=== PATIENT | female | born 1975 | race Caucasian/White ===

== ENCOUNTER 2018-03-10 20:25 | Emergency (ER) | payer OTHER ==
[~2018-03-10] VITALS: Wt 85.6 kg
[~2018-03-10 20:25] MED LIST: ALBU8.5H5 IH; AZIT250T13 PO; BENZ1LOZ52 MM; IBUP-1542 PO; MECL-77 PO
[2018-03-11] MEDS ORDERED: SOD CHLORIDE 0.9% 1,000 ML IV STA (00:01)
[2018-03-11] MEDS ORDERED: ONDANSETRON 4 MG INJ IV STA (00:01)
[2018-03-11] MEDS ORDERED: morphine 4 MG/ML VIAL IV STA (00:01)
[2018-03-11] MEDS ORDERED: CEFTRIAXONE 1 GM/50 ML (PMX) 50 ML IVPB ONE (01:00)
--- NOTE | 2018-03-11 01:17 | ERD ---
ER Documentation Chief Complaint Chief Complaint AP X'S 1 HR, BURNING UP ASOPHAGUS HPI This is a 42-year-old female who presents to the emergency room for evaluation of abdominal pain. The patient localizes abdominal pain to the midportion of the abdomen and describes it as a burning-like pain worse with spicy foods. The patient denies any radiation of pain in denies any nausea or vomiting associated with this. The patient came to the emergency room today for evaluation of her symptoms. ROS All systems reviewed and are negative except as per history of present illness. Medications Home Meds Active Scripts Meclizine Hcl* (Meclizine Hcl*) 25 Mg Tablet, 25 MG PO Q8H PRN for dizziness, #7 TAB Prov:TAMARA METCALF PA-C 11/16/14 Azithromycin* (Azithromycin*) 250 Mg Tablet, 250 MG PO DAILY, #6 TAB Take 2 tablets day 1, take one tablet each day 2-5 Prov:TAMARA METCALF PA-C 11/16/14 Benzocaine/Menthol* (Cepacol* Sore Throat Lozenges) 1 Each Lozenge, 1 EACH MM q2h PRN for SORE THROAT, #20 LOZENGE Prov:TAMARA METCALF PA-C 11/16/14 Albuterol Sulfate* (Albuterol Sulfate* HFA) 8.5 Gm Hfa.aer.ad, 2 PUFF IH Q4H PRN for WHEEZING AND SOB, #1 EA Prov:TAMARA METCALF PA-C 11/16/14 Ibuprofen* (Ibuprofen*) 600 Mg Tablet, 600 MG PO Q6, #30 TAB Prov:TAMARA METCALF PA-C 11/16/14 Reported Medications [None] No Conflict Check 12/28/11 Allergies Allergies: Coded Allergies: No Known Allergy (Unverified , 12/28/11) PMhx/Soc Medical and Surgical Hx: pt denies Surgical Hx History of Surgery: Yes (ovarian cyst removal) Anesthesia Reaction: No Hx Neurological Disorder: No Hx Respiratory Disorders: No Hx Cardiac Disorders: No Hx Psychiatric Problems: No Hx Miscellaneous Medical Probl: Yes (DM) Hx Alcohol Use: No Hx Substance Use: No Hx Tobacco Use: No Smoking Status: Never smoker Physical Exam Vitals Vital Signs Date Temp Pulse Resp B/P (MAP) Pulse Ox O2 O2 Flow FiO2 Time Delivery Rate 03/11/18 83 22 126/71 100 Room Air 00:20 (89) 03/10/18 98.2 87 18 134/76 100 20:28 (95) Physical Exam INITIAL VITAL SIGNS: Reviewed by me GENERAL: The patient is well developed and appropriate for usual state of health in no apparent distress HEENT: Pupils equal, round, and reactive to light. EOMI. There is no scleral icterus. NECK: C-spine is soft and supple, there is no meningismus. There is no cervical lymphadenopathy. LUNGS: Clear to auscultation bilaterally. There are no rales, wheezes or rhonchi. HEART: Regular rate and rhythm, no murmurs, clicks, rubs or gallops. ABDOMEN: Epigastric tenderness to palpation, negative Kelly sign, otherwise soft, non-tender, non-distended. There are bowel sounds in all four quadrants. No rebound or guarding. EXTREMITIES: There is no peripheral cyanosis or edema. No focal swelling or erythema. NEUROLOGICAL: The patient moves all four extremities with 5/5 strength. Cranial nerves II - XII are intact. Normal gait. Alert and oriented SKIN: There is no apparent rash or petechiae. HEME/LYMPHATIC: There is no evidence of excessive bruising or lymphedema. PSYCHIATRIC: The patient does not appear anxious or depressed. Result Diagram: 03/11/18 0003 03/11/18 0003 Results 24 hrs Laboratory Tests Test 03/11/18 00:03 03/11/18 00:09 White Blood Count 10.4 10^3/ul Red Blood Count 4.75 10^6/ul Hemoglobin 10.5 g/dl Hematocrit 34.6 % Mean Corpuscular Volume 72.8 fl Mean Corpuscular Hemoglobin 22.1 pg Mean Corpuscular Hemoglobin Concent 30.3 g/dl Red Cell Distribution Width 16.4 % Platelet Count 387 10^3/UL Mean Platelet Volume 10.0 fl Immature Granulocytes % 0.400 % Neutrophils % 77.6 % Lymphocytes % 15.5 % Monocytes % 4.8 % Eosinophils % 0.7 % Basophils % 1.0 % Nucleated Red Blood Cells % 0.0 /100WBC Immature Granulocytes # 0.040 10^3/ul Neutrophils # 8.1 10^3/ul Lymphocytes # 1.6 10^3/ul Monocytes # 0.5 10^3/ul Eosinophils # 0.1 10^3/ul Basophils # 0.1 10^3/ul Nucleated Red Blood Cells # 0.0 10^3/ul Urine Color QUAN Urine Clarity CLOUDY Urine pH 6.0 Urine Specific [place] 1.021 Urine Ketones NEGATIVE mg/dL Urine Nitrite NEGATIVE mg/dL Urine Bilirubin NEGATIVE mg/dL Urine Urobilinogen 2+ mg/dL Urine Leukocyte Esterase 2+ Pablo/ul Urine Microscopic RBC 4 /HPF Urine Microscopic WBC 80 /HPF Urine Squamous Epithelial Cells MANY /HPF Urine Bacteria MODERATE /HPF Urine Mucus MANY /HPF Urine Hemoglobin NEGATIVE mg/dL Urine Glucose NEGATIVE mg/dL Urine Total Protein 1+ mg/dl Sodium Level 135 mmol/L Potassium Level 3.8 mmol/L Chloride Level 100 mmol/L Carbon Dioxide Level 25 mmol/L Anion Gap 10 Blood Urea Nitrogen 8 mg/dl Creatinine 0.54 mg/dl Est Glomerular Filtrat Rate mL/min > 60 mL/min Glucose Level 176 mg/dl Calcium Level 8.9 mg/dl Total Bilirubin 0.2 mg/dl Direct Bilirubin 0.00 mg/dl Indirect Bilirubin 0.2 mg/dl Aspartate Amino Transf (AST/SGOT) 122 IU/L Alanine Aminotransferase (ALT/SGPT) 46 IU/L Alkaline Phosphatase 90 IU/L Total Protein 7.8 g/dl Albumin 4.4 g/dl Globulin 3.40 g/dl Albumin/Globulin Ratio 1.29 Lipase 78 U/L POC Beta HCG, Qualitative NEGATIVE Current Medications Medications Dose Sig/Bijal Start Time Status Last (Trade) Ordered Route PRN Stop Time Admin Dose Reason Admin Morphine 4 mg ONCE STAT 03/11/18 DC 03/11/18 Sulfate IV 00:01 00:16 (morphine) 03/11/18 00:02 Ondansetron 4 mg ONCE STAT 03/11/18 DC 03/11/18 HCl (Zofran IV 00:01 00:16 Inj) 03/11/18 00:02 Sodium 1,000 ml @ Q1H STAT 03/11/18 DC 03/11/18 Chloride 1,000 mls/hr IV 00:01 00:16 03/11/18 01:00 Ceftriaxone 50 ml @ ONCE ONCE 03/11/18 Sodium 100 mls/hr IVPB 01:00 03/11/18 01:29 Procedures/MDM This 42-year-old female presents to the ER for evaluation of abdominal pain. On my exam she had epigastric tenderness to palpation however she was afebrile and nontoxic-appearing. Her remainder of the abdominal exam was benign with no tenderness elicited. The patient underwent lab testing and the patient has no significant lab abnormalities. The patient does have microcytic anemia. Urinalysis does reveal urinary tract infection. This patient likely has gastroesophageal reflux disease. The patient was given a 1 g Rocephin for urinary tract infection and will be discharged home with a prescription for K eflex, and Zantac. The patient has no chest pain, and no heart palpitations. The patient does feel much better after receiving IV analgesia and will be discharged home with strict return precautions. Differential diagnoses entertained was broad with potential high acuity. Patient has been evaluated for appendicitis, cholecystitis, and other high risk medical and surgical causes of abdominal pain. Ultimately the patient's evaluation is nondiagnostic. Based on the patient's lack of risk factors, as well as the patient's clinical, laboratory, and imaging data, the patient appears to be low risk for these high risk causes of abdominal pain. Departure Diagnosis: Primary Impression: Acute cystitis Additional Impressions: GERD (gastroesophageal reflux disease) Abdominal colic Condition: Stable LUCY ARENAS DO Mar 11, 2018 01:17
[2018-03-11] MEDS ORDERED: CEPH-443 PO (01:18)
[2018-03-11] MEDS ORDERED: RANI150T35 PO (01:18)
[2018-03-11 02:10] VITALS: BP 115/61; PULSE 90; RESP 20
== END 2018-03-11 02:57 | disposition home or self-care (01) ==
LOC: E/R 20:25
DX: N30.00 Acute cystitis without hematuria (principal); E11.9 Type 2 diabetes mellitus without complications; K21.9 Gastro-esophageal reflux disease without esophagitis
CPT/HCPCS: 36415; 80053; 81001; 81025; 83690; 85025; 96374; 96375; J2270; J2405; J7030; Z7502